=== PATIENT | male | born 1965 | race Caucasian/White ===

== ENCOUNTER 2018-04-25 13:17 | Inpatient (IN) ==
[2018-04-25] MEDS ORDERED: Ertapenem Inj 1 GM in Sodium Chloride 0.9% 100 ML IV ONE (13:44)
--- NOTE | 2018-04-25 14:23 | PDOC ---
HPI - History of Present Illness Date of Service: 04/25/18 Time of Service: 14:18 Chief Complaint: Left-sided abdominal pain History of Present Illness: This is a 52-year-old male who comes in the office with the 24-hour history of having left-sided abdominal pain. This started on 04/24/2018 procedures came more severe. Patient went to the walk-in clinic and was seen by Darius Stewart That point he was had a 12.3 white count lipase normal. This led to a CT scan which was read as a perforated diverticulum with well-contained. No abscesses seen. Patient denies any fevers or chills. Patient has no nausea vomiting. There is no diarrhea. No hematochezia hematemesis or melena. Patient is never had bowel pain like this before. Patient has not had any colonoscopies. Past Medical History Medical History: Denies any significant Medical problems Surgical History: Denies any's significant surgical problems Pertinent Family History: No family history of colon cancer Tobacco Use: Never Smoker In the Past 12 Months, Have Used or Abuse Any of the Following Substance: None Medication / Allergies Home Medications: Home Medications 3 Medication Instructions Recorded Confirmed Type Multivitamin [Multivitamins] 1 ea PO DAILY 11/13/16 04/25/18 History Naproxen Sodium [Aleve] 2 cap PO PRN PRN 11/13/16 04/25/18 History Allergies/Adverse Reactions: Allergies 3 Allergy/AdvReac Type Severity Reaction Status Date / Time No Known Allergies Allergy Unverified 04/25/18 14:18 Review of Systems - Constitutional Constitutional: REPORTS: General Health Excellent - Integumentary Integumentary: REPORTS: Negative System Review - Eye Exam Eye Exam: REPORTS: Negative System Review - Ear/Nose Exam Ear/Nose Exam: REPORTS: Negative System Review - Mouth/Throat Mouth/Throat Exam: REPORTS: Negative System Review - Respiratory Respiratory: REPORTS: Negative System Review - Cardiovascular Cardiovascular: REPORTS: Negative System Review - Gastrointestinal Gastrointestinal / Abdominal: REPORTS: Negative System Review, Abdominal Pain - Genitourinary Genitourinary: REPORTS: Negative System Review - Musculoskeletal Musculoskeletal: REPORTS: Negative System Review - Hematlogic / Lymphatic Hematologic / Lymphatic: REPORTS: Negative System Review - Neurological Neurologic: REPORTS: Negative System Review - Psychiatric Psychiatric: REPORTS: Negative System Review Exam - Vitals Vital Signs: Vital Signs Temperature 99.6 F Temperature Source Temporal Artery Scan Pulse Rate [Pulse Oximeter] 84 Respiratory Rate 18 Blood Pressure [Left Arm] 120/71 Pulse Ox 94 Oxygen Delivery Method Room Air Height 5 ft 9 in Weight 222 lb - General General Appearance: No Acute Distress, Cooperative - Head Head Exam: Normal Inspection, Normocephalic - Eye Eye Exam: POSITIVE: PERRL, EOMI - Neck Neck Exam: Full ROM, No Tenderness - Respiratory Respiratory Exam: POSITIVE: Clear to Auscultation - Bilaterally, Breathing Non Labored - Cardiovascular Cardiovascular Exam: POSITIVE: RRR, No Murmur, No Clicks, No Gallops, No Rubs - GI/Abdominal GI/Abdominal Exam: POSITIVE: No Hepatomegaly, No Splenomegaly Additional GI/Abdominal Exam Details: Patient has some tenderness in the left lower quadrant but no rebound or rigidity noted. - Rectal Rectal Exam: POSITIVE: Deferred - External Exam: POSITIVE: Deferred Exam: POSITIVE: Deferred - Extremities Extremities Exam: POSITIVE: Full ROM, Normal Capillary Refill, No Clubbing Present - Neurological Neurological Exam: POSITIVE: Alert, Oriented x 3, CN II-XII Intact - Psychiatric Psychiatric Exam: POSITIVE: Normal Affect, Normal Mood - Integumentary Integumentary Exam: POSITIVE: Normal Color, Warm, Dry, Intact Assessment and Plan - Patient Problems (1) Diverticulitis large intestine Current Visit: Yes Status: Acute Code(s): K57.32 - Diverticulitis of large intestine without perforation or abscess without bleeding - Assessment / Plan Additional Assessment/Plan Details: Patient has a contained perforation of his diverticula. I think this can be treated with antibiotics. We'll start him on Invanz. Will check a CBC in the patient and the a.m. I discussed the risk and benefits of doing nonoperative management. Also discussed operative management. Patient is in agreement with nonoperative management at this time.
[2018-04-25] MEDS: MORPHINE SULFATE 2 MG/1 ML IVP PRN (14:47)
[2018-04-25] MEDS: D5-1/2NS + 20mEq KCL 1,000 ML PRIMARY IV SCH ×2 (14:47→22:19)
[2018-04-26 05:24] LABS: Hematocrit [HCT] 41.6 % (42.0-52.0); MEAN CORPUSCULAR HEMOGLOBIN 28.4 PG (27-31); MEAN CORPUSCULAR HGB CONC 33.7 g/dL (33-37); MEAN CORPUSCULAR VOLUME 84.4 FL (80-90); MEAN PLATELET VOLUME 11.6 FL (7.4-12.2); RED BLOOD COUNT 4.93 10^6/uL (4.70-6.10)
[2018-04-26 05:43] LABS: BLOOD UREA NITROGEN 10 mg/dL (7-22); BUN/CREATININE RATIO 14.28 (6-20)
[2018-04-26] MEDS: D5-1/2NS + 20mEq KCL 1,000 ML PRIMARY IV SCH ×2 (05:46→09:55)
[2018-04-26 06:36] LABS: NEUTROPHILS % (MANUAL) 76 % (50-80); PLATELET MORPHOLOGY COMMENT NORMAL MORPHOLOGY (NORM); RBC MORPHOLOGY COMMENT NORMAL MORPHOLOGY (NORM); WBC MORPHOLOGY COMMENT NORMAL MORPHOLOGY (NORM)
[2018-04-26 06:37] LABS: BAND NEUTROPHILS % 7 % (0-10); BASOPHILS % (MANUAL) 0 % (0-1); EOSINOPHILS % (MANUAL) 0 % (0-8); MONOCYTES % (MANUAL) 6 % (0-12)
[2018-04-26] MEDS: MORPHINE SULFATE 2 MG/1 ML IVP PRN (06:40)
[2018-04-26] MEDS ORDERED: ONDANSETRON 4 MG/2 ML VIAL IVP PRN (09:31)
--- NOTE | 2018-04-26 10:08 | PDOC(PROG) ---
Date and Time of Service: 04/26/2018 Interval History: Patient states that he feels better than yesterday. Objective : Data - Labs CBC and BMP: 04/26/18 05:07 04/26/18 05:07 - Vital Signs Vital Signs and I&O: Vital Signs - Last Taken Temperature 98 F 04/26/18 08:40 Pulse Rate 57 L 04/26/18 08:40 Respiratory Rate 18 04/26/18 08:40 Blood Pressure 117/65 04/26/18 08:40 Pulse Ox 96 04/26/18 08:40 Intake and Output (24hr x 4 totals) 04/24/18 04/25/18 04/26/18 04/27/18 05:59 05:59 05:59 05:59 Intake Total 2869 / 2869 Output Total 1600 / 1600 Balance 1269 / 1269 Objective : Exam - General General Appearance: No Acute Distress, Cooperative - GI/Abdominal Additional GI/Abdominal Exam Details: Patient still has left lower quadrant tenderness but no rebound tenderness. Assessment and Plan - Patient Problems (1) Diverticulitis large intestine Current Visit: Yes Status: Acute Code(s): K57.32 - Diverticulitis of large intestine without perforation or abscess without bleeding - Assessment / Plan Additional Assessment/Plan Details: Patient's white count is slightly higher than was yesterday of 14,000. The did have a low-grade fever 100 last night. He's only been on antibiotics less than 24 hours (one dose of Invanz). We'll continue the IV Invanz. Recheck white count in the morning. Decrease IV fluids.
[2018-04-26] MEDS: Ertapenem Inj 1 GM in Sodium Chloride 0.9% 100 ML IV SCH (14:23)
[2018-04-27 05:03] LABS: Hematocrit [HCT] 39.7 % (42.0-52.0); Hemoglobin [HGB] 13.1 g/dL (14.0-18.0); MEAN CORPUSCULAR VOLUME 84.8 FL (80-90); MEAN PLATELET VOLUME 11.5 FL (7.4-12.2); RED BLOOD COUNT 4.68 10^6/uL (4.70-6.10)
[2018-04-27 05:32] LABS: PLATELET MORPHOLOGY COMMENT NORMAL MORPHOLOGY (NORM); RBC MORPHOLOGY COMMENT NORMAL MORPHOLOGY (NORM); WBC MORPHOLOGY COMMENT NORMAL MORPHOLOGY (NORM)
[2018-04-27 05:33] LABS: BAND NEUTROPHILS % 2 % (0-10); BASOPHILS % (MANUAL) 0 % (0-1); EOSINOPHILS % (MANUAL) 0 % (0-8); MONOCYTES % (MANUAL) 10 % (0-12); NEUTROPHILS % (MANUAL) 69 % (50-80)
[2018-04-27 07:40] VITALS: BP 113/67; RESP 14; TEMP 97.3; O2SAT 95
--- NOTE | 2018-04-27 11:03 | DCSUMMARY ---
Discharge Summary Admit Date: 04/25/18 Discharge Date: 04/27/18 Admitting Diagnosis: perforated diverticulitis without abscess Discharge Diagnosis: Perforated diverticulitis without abscess Hospital Course: 52-year-old gentleman who on 04/25/2018 was admitted for diverticulitis. CT scan showed small pockets of free air adjacent to the sigmoid colon. There is some fluid but no abscess cavity seen. Patient's white count was 12,000. He was started on Invanz 1 g every 24 hours. Next morning his white count had creeped up to 14.2 but he was stating he is feeling better. Ice temperatures 100.4. Patient is continued on Invanz. On this third patient's white count returned to normal at 9.0. He was no longer have any abdominal pain. Is felt that he'll get his dose of Invanz on the third and then will be started on 04/28 on Augmentin 875 twice a day. He can be discharged after his last dose of antibiotics. He'll follow up in 1 week's time. Exam - Vitals Vital Signs: Vital Signs Temperature 97.3 F Temperature Source Temporal Artery Scan Pulse Rate [Pulse Oximeter] 54 Respiratory Rate 14 Blood Pressure [Left Arm] 113/67 Pulse Ox 95 Oxygen Delivery Method Room Air Height 5 ft 9 in Weight 218 lb - General General Appearance: No Acute Distress, Cooperative - Respiratory Respiratory Exam: POSITIVE: Clear to Auscultation - Bilaterally - Cardiovascular Cardiovascular Exam: POSITIVE: No Murmur - GI/Abdominal GI/Abdominal Exam: POSITIVE: Normal Bowel Sounds, Non Tender, Non Distended, Soft Patient Problems - Patient Problem List (1) Diverticulitis large intestine Current Visit: Yes Status: Acute Code(s): K57.32 - Diverticulitis of large intestine without perforation or abscess without bleeding Category: Medical
[2018-04-27] MEDS: Ertapenem Inj 1 GM in Sodium Chloride 0.9% 100 ML IV SCH (11:29)
== END 2018-04-27 12:20 | disposition home or self-care (01) | DRG 392 ==
LOC: MED/SURG 13:31
PROVIDERS: ADMIT Surgery; ATTEND Surgery